=== PATIENT | female | born 1995 | race Two or more races ===

== ENCOUNTER 2019-02-28 13:52 | Emergency (ER) | payer OTHER ==
[~2019-02-28] VITALS: Ht 160 cm; Wt 93.0 kg
[2019-02-28 15:01] LABS: Basophils # (auto) 0.1 uL; Basophils % (auto) 0.5 % (0.0-2.0); Eosinophils # (auto) 0.1 uL; Eosinophils % (auto) 1.3 % (0.0-7.0); Hematocrit 46.2 % (36.0-46.0); Hemoglobin 15.2 g/dL (12.2-16.2); Lymphocytes # (auto) 2.4 uL; Lymphocytes % (auto) 25.5 % (10.0-50.0); Mean Corpuscular Hemoglobin 29.6 pg (28.0-32.0); Mean Corpuscular Volume 89.7 fL (80.0-100.0); Monocytes # (auto) 0.8 uL; Monocytes % (auto) 8.1 % (0.0-12.0); Neutrophils % (auto) 64.6 % (37.0-80.0); Nucleated Red Blood Cells % 0.1 %; Platelet Count (auto) 365 10^3/uL (140-450); Red Blood Cells 5.15 10^6/uL (4.0-5.20); Red Cell Distribution Width 12.9 % (11.8-14.3); White Blood Cell 9.4 10^3/uL (4.4-10.8)
[2019-02-28 15:02] LABS: Albumin 3.7 g/dL (3.4-5.0); BUN/Creatinine Ratio 9.1; Calcium 9.2 mg/dL (8.5-10.1)
[2019-02-28 15:05] LABS: Bilirubin, Total 0.4 mg/dL (0.2-1.0); Total Protein 7.6 g/dL (6.4-8.2)
[2019-02-28 16:24] LABS: Urine Bacteria NONE SEEN /hpf (None Seen); Urine Blood 3+ /uL (Negative); Urine Specific Gravity 1.005 (1.001-1.035); Urine WBC 3 /hpf (0 - 5)
[2019-02-28 17:28] VITALS: BP 126/66
== END 2019-02-28 17:32 | disposition home or self-care (01) ==
LOC: ER 13:52
DX: O20.0 Threatened abortion (principal); Z3A.01 Less than 8 weeks gestation of pregnancy
CPT/HCPCS: 36415; 76801; 76817; 80053; 81001; 84702; 85025

== ENCOUNTER 2019-04-09 19:25 | Emergency (ER) | payer MEDICAID ==
[~2019-04-09] VITALS: Ht 160 cm; Wt 93.4 kg
[2019-04-09 20:00] LABS: Urine Bacteria NONE SEEN /hpf (None Seen); Urine Blood 3+ /uL (Negative); Urine Mucus FEW (None Seen); Urine Specific Gravity 1.011 (1.001-1.035); Urine WBC 78 /hpf (0 - 5)
[2019-04-09 21:26] LABS: Basophils # (auto) 0.1 uL; Basophils % (auto) 0.7 % (0.0-2.0); Eosinophils # (auto) 0.5 uL; Eosinophils % (auto) 5.3 % (0.0-7.0); Lymphocytes # (auto) 3.1 uL; Lymphocytes % (auto) 30.4 % (10.0-50.0); Mean Corpuscular Hemoglobin 30.4 pg (28.0-32.0); Mean Corpuscular Hgb Conc. 34.3 g/dL (32.0-36.0); Mean Corpuscular Volume 88.7 fL (80.0-100.0); Monocytes % (auto) 9.5 % (0.0-12.0); Neutrophils # (auto) 5.4 uL; Neutrophils % (auto) 54.1 % (37.0-80.0); Platelet Count (auto) 299 10^3/uL (140-450); Red Blood Cells 4.29 10^6/uL (4.0-5.20); Red Cell Distribution Width 13.2 % (11.8-14.3); White Blood Cell 10.1 10^3/uL (4.4-10.8)
[2019-04-09 21:45] LABS: Albumin 3.3 g/dL (3.4-5.0); Calcium 8.7 mg/dL (8.5-10.1); Potassium 3.9 mmol/L (3.5-5.1)
[2019-04-09 21:48] LABS: BUN/Creatinine Ratio 12.5; Bilirubin, Total 0.1 mg/dL (0.2-1.0)
[2019-04-09 23:30] VITALS: BP 110/64
== END 2019-04-09 23:44 | disposition home or self-care (01) ==
LOC: ER 19:26
DX: O20.8 Other hemorrhage in early pregnancy (principal); O23.42 Unspecified infection of urinary tract in pregnancy, second trimester; Z3A.14 14 weeks gestation of pregnancy
CPT/HCPCS: 36415; 76805; 80053; 81001; 82962; 84702; 85025

== ENCOUNTER 2019-07-19 14:10 | Observation (INO) | payer MEDICAID ==
[2019-07-19 15:26] LABS: Basophils # (auto) 0 uL; Basophils % (auto) 0.3 % (0.0-2.0); Eosinophils # (auto) 0.3 uL; Eosinophils % (auto) 3.5 % (0.0-7.0); Hematocrit 39.3 % (36.0-46.0); Hemoglobin 12.8 g/dL (12.2-16.2); Lymphocytes # (auto) 2.3 uL; Lymphocytes % (auto) 24.6 % (10.0-50.0); Mean Corpuscular Hemoglobin 28.1 pg (28.0-32.0); Mean Corpuscular Hgb Conc. 32.6 g/dL (32.0-36.0); Mean Corpuscular Volume 86.4 fL (80.0-100.0); Monocytes # (auto) 0.8 uL; Monocytes % (auto) 8.9 % (0.0-12.0); Neutrophils # (auto) 5.8 uL; Neutrophils % (auto) 62.7 % (37.0-80.0); Nucleated Red Blood Cells % 0.1 %; Platelet Count (auto) 279 10^3/uL (140-450); Red Blood Cells 4.55 10^6/uL (4.0-5.20); White Blood Cell 9.3 10^3/uL (4.4-10.8)
[2019-07-19 15:28] LABS: Urine Bacteria NONE SEEN /hpf (None Seen); Urine Blood Negative /uL (Negative); Urine Hyaline Cast FEW /lpf (0 - 2); Urine Mucus FEW (None Seen); Urine Specific Gravity 1.023 (1.001-1.035); Urine WBC 7 /hpf (0 - 5)
[2019-07-19 15:42] LABS: Albumin 2.7 g/dL (3.4-5.0); Calcium 8.8 mg/dL (8.5-10.1); Potassium 3.8 mmol/L (3.5-5.1)
[2019-07-19 15:45] LABS: INR < 0.93 (0.9-1.15); Partial Thromboplastin Time 27.3 sec (23.64-32.05)
[2019-07-19 15:47] LABS: BUN/Creatinine Ratio 19.6; Bilirubin, Total 0.1 mg/dL (0.2-1.0); Uric Acid 4.6 mg/dL (2.6-6.0)
== END 2019-07-19 16:55 | disposition home or self-care (01) | DRG 566 ==
LOC: LDRP 14:10
PROVIDERS: ADMIT Specialist; ATTEND Specialist
DX: O26.893 Other specified pregnancy related conditions, third trimester (principal); Z3A.28 28 weeks gestation of pregnancy
CPT/HCPCS: 36415; 59025; 80053; 81001; 81002; 84550; 85025; 85610; 85730; G0378

== ENCOUNTER 2019-07-24 09:50 | Observation (INO) | payer MEDICAID ==
[2019-07-24] MEDS ORDERED: PREN-153 OR (10:16)
[2019-07-24 11:10] LABS: Protein, Urine 15.6 mg/dL (0.0-11.9)
== END 2019-07-24 11:30 | disposition home or self-care (01) | DRG 566 ==
LOC: LDRP 09:50
PROVIDERS: ADMIT Obstetrics & Gynecology; ATTEND Obstetrics & Gynecology
DX: O26.893 Other specified pregnancy related conditions, third trimester (principal); R03.0 Elevated blood-pressure reading, without diagnosis of hypertension; Z3A.29 29 weeks gestation of pregnancy
CPT/HCPCS: 59025; 81002; 84156; G0378

== ENCOUNTER 2019-08-01 13:50 | Observation (INO) | payer MEDICAID ==
[~2019-08-01 13:50] MED LIST: PREN-153 OR
== END 2019-08-01 14:58 | disposition home or self-care (01) | DRG 566 ==
LOC: LDRP 13:50
PROVIDERS: ADMIT Specialist; ATTEND Specialist
DX: O26.893 Other specified pregnancy related conditions, third trimester (principal); N89.8 Other specified noninflammatory disorders of vagina; Z3A.30 30 weeks gestation of pregnancy
CPT/HCPCS: 59025; 76818; 81002; G0378

== ENCOUNTER 2019-08-08 14:44 | Observation (INO) | payer MEDICAID | END 2019-08-08 15:33 | disposition home or self-care (01) | DRG 566 | LOC: LDRP 14:44 | PROVIDERS: ADMIT Specialist; ATTEND Specialist | DX: O26.893 Other specified pregnancy related conditions, third trimester (principal); Z3A.31 31 weeks gestation of pregnancy | CPT/HCPCS: 59025; 76818; 81002; G0378 ==

== ENCOUNTER 2019-08-15 09:30 | Observation (INO) | payer MEDICAID | END 2019-08-15 10:50 | disposition home or self-care (01) | DRG 566 | LOC: LDRP 09:30 | PROVIDERS: ADMIT Specialist; ATTEND Specialist | DX: O13.3 Gestational [pregnancy-induced] hypertension without significant proteinuria, third trimester (principal); Z3A.32 32 weeks gestation of pregnancy | CPT/HCPCS: 59025; 76818; 81002; G0378 ==

== ENCOUNTER 2019-08-21 07:11 | Observation (INO) | payer MEDICAID | END 2019-08-21 11:25 | disposition home or self-care (01) | DRG 566 | LOC: LDRP 08:17 | PROVIDERS: ADMIT Specialist; ATTEND Specialist | DX: O13.3 Gestational [pregnancy-induced] hypertension without significant proteinuria, third trimester (principal); Z3A.33 33 weeks gestation of pregnancy | CPT/HCPCS: 59025; 76818; 81002; G0378 ==

== ENCOUNTER 2019-08-28 10:11 | Observation (INO) | payer MEDICAID | END 2019-08-28 11:50 | disposition home or self-care (01) | DRG 566 | LOC: LDRP 10:11 | PROVIDERS: ADMIT Specialist; ATTEND Specialist | DX: O13.3 Gestational [pregnancy-induced] hypertension without significant proteinuria, third trimester (principal); Z3A.34 34 weeks gestation of pregnancy | CPT/HCPCS: 59025; 76818; 81002; G0378 ==

== ENCOUNTER 2019-09-03 10:01 | Observation (INO) | payer MEDICAID | END 2019-09-03 11:06 | disposition home or self-care (01) | DRG 566 | LOC: LDRP 10:01 | PROVIDERS: ADMIT Specialist; ATTEND Specialist | DX: O26.893 Other specified pregnancy related conditions, third trimester (principal); Z3A.35 35 weeks gestation of pregnancy | CPT/HCPCS: 59025; 76818; 81002; G0378 ==

== ENCOUNTER 2019-09-10 10:12 | Observation (INO) | payer MEDICAID | END 2019-09-10 11:20 | disposition home or self-care (01) | DRG 566 | LOC: LDRP 10:12 | PROVIDERS: ADMIT Obstetrics & Gynecology; ATTEND Obstetrics & Gynecology | DX: O13.3 Gestational [pregnancy-induced] hypertension without significant proteinuria, third trimester (principal); Z3A.36 36 weeks gestation of pregnancy | CPT/HCPCS: 59025; 76818; 81002; G0378 ==

== ENCOUNTER 2019-09-17 11:12 | Observation (INO) | payer MEDICAID | END 2019-09-17 12:30 | disposition home or self-care (01) | DRG 566 | LOC: LDRP 11:12 | PROVIDERS: ADMIT Specialist; ATTEND Specialist | DX: O13.3 Gestational [pregnancy-induced] hypertension without significant proteinuria, third trimester (principal); Z3A.37 37 weeks gestation of pregnancy | CPT/HCPCS: 59025; 76818; 81002; G0378 ==

== ENCOUNTER 2019-09-24 11:04 | Observation (INO) | payer MEDICAID | END 2019-09-24 12:10 | disposition home or self-care (01) | DRG 566 | LOC: LDRP 11:04 | PROVIDERS: ADMIT Obstetrics & Gynecology; ATTEND Obstetrics & Gynecology | DX: O36.8330 Maternal care for abnormalities of the fetal heart rate or rhythm, third trimester, not applicable or unspecified (principal); Z3A.38 38 weeks gestation of pregnancy | CPT/HCPCS: 59025; 76818; 81002; G0378 ==

== ENCOUNTER 2019-10-01 10:29 | Observation (INO) | payer MEDICAID | END 2019-10-01 12:34 | disposition home or self-care (01) | DRG 566 | LOC: LDRP 10:29 | PROVIDERS: ADMIT Specialist; ATTEND Specialist | DX: O62.9 Abnormality of forces of labor, unspecified (principal); Z3A.39 39 weeks gestation of pregnancy | CPT/HCPCS: 59025; 76818; 81002; G0378 ==

== ENCOUNTER 2019-10-03 22:57 | Inpatient (IN) | payer MEDICAID ==
[~2019-10-03] VITALS: Ht 160 cm; Wt 104.8 kg
[2019-10-03] MEDS ORDERED: LACT. RINGERS/OXYTOCIN 20UNITS 1,000 ML IV SCH (23:10)
[2019-10-03] MEDS ORDERED: LIDOCAINE 2%HCL (LOCAL ANESTH.) INJ 20ML MDV ID ONE (23:15)
[2019-10-03] MEDS ORDERED: WITCH HAZEL-GLYCERIN PAD TOP PRN (23:15)
[2019-10-03] MEDS ORDERED: PHISODERM TOP SOLN 240ML BTL TOP PRN (23:15)
[2019-10-03] MEDS ORDERED: DERMOPLAST 60ML BOTTLE TOP PRN (23:15)
[2019-10-04] MEDS ORDERED: PENICILLIN G POT 5MIL/D5 50ML 50 ML IV ONE
[2019-10-04 00:01] LABS: Basophils # (auto) 0.1 uL; Basophils % (auto) 0.6 % (0.0-2.0); Eosinophils # (auto) 0.2 uL; Eosinophils % (auto) 1.6 % (0.0-7.0); Hematocrit 39.8 % (36.0-46.0); Hemoglobin 13.6 g/dL (12.2-16.2); Lymphocytes # (auto) 3.2 uL; Lymphocytes % (auto) 31.2 % (10.0-50.0); Mean Corpuscular Hemoglobin 29.2 pg (28.0-32.0); Mean Corpuscular Hgb Conc. 34.3 g/dL (32.0-36.0); Mean Corpuscular Volume 85.2 fL (80.0-100.0); Monocytes # (auto) 0.9 uL; Monocytes % (auto) 8.8 % (0.0-12.0); Neutrophils % (auto) 57.8 % (37.0-80.0); Nucleated Red Blood Cells % 0.1 %; Platelet Count (auto) 244 10^3/uL (140-450); Red Blood Cells 4.67 10^6/uL (4.0-5.20); White Blood Cell 10.4 10^3/uL (4.4-10.8)
[2019-10-04 00:07] LABS: Albumin 2.7 g/dL (3.4-5.0); BUN/Creatinine Ratio 23.2; Calcium 9.2 mg/dL (8.5-10.1); Potassium 3.9 mmol/L (3.5-5.1); Uric Acid 6.1 mg/dL (2.6-6.0)
[2019-10-04 00:13] LABS: INR < 0.93 (0.9-1.15); Partial Thromboplastin Time 27.9 sec (23.64-32.05)
[2019-10-04 00:16] LABS: Bilirubin, Total 0.2 mg/dL (0.2-1.0); Total Protein 6.8 g/dL (6.4-8.2)
[2019-10-04 00:59] LABS: Urine Bacteria FEW /hpf (None Seen); Urine Blood Negative /uL (Negative); Urine Specific Gravity 1.003 (1.001-1.035); Urine WBC 1 /hpf (0 - 5)
[2019-10-04] MEDS: LACTATED RINGER'S 1,000 ML IV SCH ×2 (00:59→04:23)
[2019-10-04 01:14] LABS: Alcohol, Urine < 3.0 mg/dL (0-5); Amphetamine Screen, Urine NEGATIVE (NEGATIVE); Barbiturate Scree,Urine NEGATIVE (NEGATIVE); Benzodiazephine Screen, Urine NEGATIVE (NEGATIVE); Cannabinoid Screen, Urine NEGATIVE (NEGATIVE); Cocaine Screen, Urine NEGATIVE (NEGATIVE); Opiate Scree,Urine NEGATIVE (NEGATIVE); Phencyclidine Screen, Urine NEGATIVE (NEGATIVE)
[2019-10-04] MEDS ORDERED: PENICILLIN G POT 5MILLION UNIT VIAL ONE (04:08)
[2019-10-04] MEDS ORDERED: SODIUM CHLORIDE LOCK 10 ML ONE (04:10)
[2019-10-04] MEDS: PENICILLIN G POTASSIUM 2,500,000 UNITS in D5W 5% 50 ML IV SCH ×4 (04:21→16:00)
[2019-10-04] MEDS ORDERED: NALBUPHINE HCL 10 MG/1ml INJECTION IV PRN (06:30)
[2019-10-04] MEDS ORDERED: LACTATED RINGER'S 1,000 ML IV ONE ×2 (07:53→19:45)
[2019-10-04] MEDS ORDERED: fentaNYL W ROPIVACAINE 150 ML EPI SCH (08:00)
[2019-10-04] MEDS ORDERED: fentaNYL CITRATE 100 MCG/2 ML VL IV ONE (08:00)
[2019-10-04] MEDS ORDERED: NALOXONE HCL 0.4 MG/ML VIAL IV ONE (08:00)
[2019-10-04] MEDS ORDERED: LIDOCAINE HCL 2 %PF INJ 10ML AMP IJ ONE (08:00)
[2019-10-04] MEDS ORDERED: ePHEDrine SULFATE 50 MG/ML AMP IV ONE (08:00)
[2019-10-04] MEDS ORDERED: METHYLERGONOVINE MALEATE 0.2 MG/ML AMP IM ONE (18:01)
[2019-10-04] MEDS ORDERED: ACETAMINOPHEN 325 MG TAB PO PRN (19:45)
[2019-10-04 20:48] LABS: Basophils # (auto) 0 uL; Basophils % (auto) 0.1 % (0.0-2.0); Eosinophils # (auto) 0 uL; Hematocrit 34.7 % (36.0-46.0); Hemoglobin 11.4 g/dL (12.2-16.2); Lymphocytes # (auto) 1.1 uL; Lymphocytes % (auto) 5.9 % (10.0-50.0); Mean Corpuscular Hemoglobin 28.1 pg (28.0-32.0); Mean Corpuscular Hgb Conc. 32.7 g/dL (32.0-36.0); Mean Corpuscular Volume 85.9 fL (80.0-100.0); Monocytes # (auto) 1.2 uL; Monocytes % (auto) 6.1 % (0.0-12.0); Neutrophils # (auto) 16.7 uL; Neutrophils % (auto) 87.9 % (37.0-80.0); Platelet Count (auto) 225 10^3/uL (140-450); Red Blood Cells 4.04 10^6/uL (4.0-5.20); Red Cell Distribution Width 15.2 % (11.8-14.3); White Blood Cell 19.1 10^3/uL (4.4-10.8)
--- NOTE | 2019-10-04 21:35 | NUR ---
Orders received for Zosyn by Dr Granger
[2019-10-04 22:00] VITALS: BP 135/62
[2019-10-04] MEDS: PIPERACILLIN-TAZOB 3.375GM 100 ML IV SCH (22:18)
[2019-10-04 22:30] VITALS: BP 131/57
[2019-10-04 23:20] VITALS: BP 128/61
[2019-10-05 03:00] VITALS: BP_SYST 131; BP_SYST 140; BP_DIAS 57; BP_DIAS 71
[2019-10-05] MEDS: PIPERACILLIN-TAZOB 3.375GM 100 ML IV SCH ×3 (04:42→17:49)
[2019-10-05 05:06] LABS: RPR Non Reactive (Non Reactive)
--- NOTE | 2019-10-05 06:10 | NUR ---
Report received by Donna Mayorga RN on stable pt. Assumed care. Addendum: 10/05/19 at 1611 by Erica Harrison RN Amended: Links added.
[2019-10-05 06:48] LABS: Basophils # (auto) 0 uL; Basophils % (auto) 0.2 % (0.0-2.0); Eosinophils # (auto) 0 uL; Eosinophils % (auto) 0.1 % (0.0-7.0); Hematocrit 28.9 % (36.0-46.0); Hemoglobin 9.5 g/dL (12.2-16.2); Lymphocytes # (auto) 2.7 uL; Lymphocytes % (auto) 17.5 % (10.0-50.0); Mean Corpuscular Hemoglobin 28.4 pg (28.0-32.0); Mean Corpuscular Hgb Conc. 32.9 g/dL (32.0-36.0); Mean Corpuscular Volume 86.4 fL (80.0-100.0); Monocytes # (auto) 1.3 uL; Monocytes % (auto) 8.1 % (0.0-12.0); Neutrophils # (auto) 11.7 uL; Neutrophils % (auto) 74.1 % (37.0-80.0); Platelet Count (auto) 211 10^3/uL (140-450); Red Blood Cells 3.34 10^6/uL (4.0-5.20); White Blood Cell 15.7 10^3/uL (4.4-10.8)
[2019-10-05 06:49] VITALS: BP 131/61
--- NOTE | 2019-10-05 06:49 | NUR ---
rash noted on back Addendum: 10/05/19 at 1807 by Erica Harrison RN Amended: Links added.
[2019-10-05] MEDS: IBUPROFEN 600 MG TAB PO PRN (07:23)
[2019-10-05] MEDS: LACTATED RINGER'S 1,000 ML IV SCH (07:24)
--- NOTE | 2019-10-05 09:24 | NUR ---
Dr. Granger at bedside, labs reviewed. Orders received to d/c [place], IV fluid to be changed to NS at 30ml/hr.
[2019-10-05] MEDS ORDERED: SODIUM CHLORIDE 0.9% 1,000 ML IV SCH (09:30)
--- NOTE | 2019-10-05 09:50 | NUR ---
[place] catheter dc'd Order to discontinue gresham catheter. [place] dc'd with clean technique following deflation of balloon. Patient tolerated well with no complaints of pain. Continue care.
[2019-10-05] MEDS: DOCUSATE CALCIUM 240 MG CAP PO SCH (09:54)
[2019-10-05 11:54] VITALS: BP 114/58
--- NOTE | 2019-10-05 13:30 | NUR ---
Ambulation: Pt assisted to side of bed to dangle prior to ambulation. Pt denies dizziness. Patient OOB with standby assistance by RN. Patient ambulated to bathroom with steady gait. Patient able to void without difficulty. [facility] teaching provided with returned demonstration by patient. Clean gown provided and bed linen changed. Patient ambulated to chair with steady gait and no distress noted.
[2019-10-05 15:30] VITALS: BP 122/64
--- NOTE | 2019-10-05 18:10 | NUR ---
Report given to Meseret Bautista RN on stable pt. Relinquished care. Addendum: 10/05/19 at 1834 by Erica Harrison RN Amended: Links added.
[2019-10-05 18:30] VITALS: BP 119/54
[2019-10-05 22:58] VITALS: BP 109/51
[2019-10-06] MEDS: PIPERACILLIN-TAZOB 3.375GM 100 ML IV SCH ×2 (00:03→05:34)
[2019-10-06 02:40] VITALS: BP 121/57
[2019-10-06] MEDS: IBUPROFEN 600 MG TAB PO PRN (05:32)
[2019-10-06 07:00] VITALS: BP 118/57
[2019-10-06] MEDS: DOCUSATE CALCIUM 240 MG CAP PO SCH (09:36)
[2019-10-06 11:00] VITALS: BP 139/80
[2019-10-06] MEDS ORDERED: INFLUENZA QUAD 2019-2020 0.5ml SYRG IM ONE (12:00)
[2019-10-06] MEDS ORDERED: MEASLES, MUMPS & RUBELLA VAC(MMRII) 0.5ML SC ONE (12:00)
[2019-10-06 15:00] VITALS: BP 138/74
--- NOTE | 2019-10-06 17:36 | NUR ---
Discharge: Discharge instructions given as ordered. Pt encouraged to follow up with [facility] as instructed. All questions and concerns addressed. Patient verbalized understanding. Medication reconciliation completed and copy given to patient. All required/requested vaccines given and copies of vaccinations given to patient. Patient encouraged to prepare to depart unit.
--- NOTE | 2019-10-06 18:00 | NUR ---
Discharge: Patient taken to vehicle via wheelchair with all personal belongings, accompanied by staff and family member. No distress noted at time of departure, no adverse changes in status since initial assessment.
== END 2019-10-06 18:00 | disposition home or self-care (01) | DRG 560 ==
LOC: LDRP 22:57
PROVIDERS: ADMIT Obstetrics & Gynecology; ATTEND Obstetrics & Gynecology
PROC: 10E0XZZ Delivery of Products of Conception, External Approach (ICD-10-PCS; principal; 2019-10-04)
PROC: 10H07YZ Insertion of Other Device into Products of Conception, Via Natural or Artificial Opening (ICD-10-PCS; 2019-10-04)
PROC: 3E0R3BZ Introduction of Anesthetic Agent into Spinal Canal, Percutaneous Approach (ICD-10-PCS; 2019-10-04)
PROC: 00HU33Z Insertion of Infusion Device into Spinal Canal, Percutaneous Approach (ICD-10-PCS; 2019-10-04)
DX: O99.824 Streptococcus B carrier state complicating childbirth (principal); O41.03X0 Oligohydramnios, third trimester, not applicable or unspecified; O72.1 Other immediate postpartum hemorrhage; Z37.0 Single live birth; Z3A.39 39 weeks gestation of pregnancy; O69.81X0 Labor and delivery complicated by cord around neck, without compression, not applicable or unspecified
CPT/HCPCS: 36415; 59025; 59409; 59612; 80053; 80307; 81001; 84112; 84550; 85025; 85610; 85730; 86592; 86850; 86900; 86901; 96361; 96365; 96366; 96372; G0378; J2540; J2543; J2590; J3010; J7060

== ENCOUNTER 2020-01-23 22:19 | Emergency (ER) | payer MEDICAID ==
[~2020-01-23] VITALS: Ht 157.5 cm; Wt 97.5 kg
[2020-01-24 00:08] VITALS: BP 136/73
== END 2020-01-24 01:23 | disposition home or self-care (01) ==
LOC: ER 22:19
DX: J02.9 Acute pharyngitis, unspecified (principal); R51 Headache; Z79.899 Other long term (current) drug therapy

== ENCOUNTER 2021-08-05 07:27 | Observation (INO) | payer MEDICAID ==
[~2021-08-05 07:27] MED LIST changes: -PREN-153 OR; +PREN1TAB71 OR
[2021-08-05] MEDS ORDERED: METF-370 PO (11:58)
== END 2021-08-05 12:10 | disposition home or self-care (01) ==
LOC: LDRP 10:35
PROVIDERS: ADMIT Obstetrics & Gynecology; ATTEND Obstetrics & Gynecology
DX: O24.415 Gestational diabetes mellitus in pregnancy, controlled by oral hypoglycemic drugs (principal); Z3A.29 29 weeks gestation of pregnancy
CPT/HCPCS: 36415; 59025; 76818; 81002; 82948; 82962; 83036; 94760; G0378; G0379

== ENCOUNTER 2021-08-09 08:47 | Observation (INO) | payer MEDICAID ==
[~2021-08-09 08:47] MED LIST changes: +METF-370 PO
== END 2021-08-09 11:40 | disposition home or self-care (01) ==
LOC: LDRP 10:05
PROVIDERS: ADMIT Obstetrics & Gynecology Obstetrics; ATTEND Obstetrics & Gynecology Obstetrics
DX: O24.415 Gestational diabetes mellitus in pregnancy, controlled by oral hypoglycemic drugs (principal); Z3A.29 29 weeks gestation of pregnancy
CPT/HCPCS: 59025; 76818; 81002; 82948; 82962; 94760; G0378

== ENCOUNTER 2021-08-12 15:07 | Observation (INO) | payer MEDICAID | END 2021-08-12 16:53 | disposition home or self-care (01) | LOC: LDRP 15:07 | PROVIDERS: ADMIT Obstetrics & Gynecology; ATTEND Obstetrics & Gynecology | DX: O24.419 Gestational diabetes mellitus in pregnancy, unspecified control (principal); Z3A.30 30 weeks gestation of pregnancy | CPT/HCPCS: 59025; 76818; 81002; 82948; 82962; G0378 ==

== ENCOUNTER 2021-08-16 10:30 | Observation (INO) | payer MEDICAID | END 2021-08-16 18:05 | disposition home or self-care (01) | LOC: LDRP 16:05 | PROVIDERS: ADMIT Obstetrics & Gynecology Obstetrics; ATTEND Obstetrics & Gynecology Obstetrics | DX: O24.419 Gestational diabetes mellitus in pregnancy, unspecified control (principal); Z3A.30 30 weeks gestation of pregnancy | CPT/HCPCS: 59025; 76818; 81002; 82948; 82962; 94760; G0378 ==

== ENCOUNTER 2021-08-19 09:12 | Observation (INO) | payer MEDICAID | END 2021-08-19 17:03 | disposition home or self-care (01) | LOC: LDRP 15:30 | PROVIDERS: ADMIT Obstetrics & Gynecology; ATTEND Obstetrics & Gynecology | DX: O24.419 Gestational diabetes mellitus in pregnancy, unspecified control (principal); Z3A.31 31 weeks gestation of pregnancy; Z79.899 Other long term (current) drug therapy | CPT/HCPCS: 59025; 76818; 81002; 82948; 82962; 94760; G0378 ==

== ENCOUNTER 2021-08-23 09:09 | Observation (INO) | payer MEDICAID | END 2021-08-24 12:28 | disposition home or self-care (01) | LOC: LDRP 08-24 10:00 | PROVIDERS: ADMIT Obstetrics & Gynecology; ATTEND Obstetrics & Gynecology | DX: O98.513 Other viral diseases complicating pregnancy, third trimester (principal); U07.1 COVID-19; O24.415 Gestational diabetes mellitus in pregnancy, controlled by oral hypoglycemic drugs; Z3A.31 31 weeks gestation of pregnancy | CPT/HCPCS: 36415; 59025; 76818; 81002; 82948; 82962; 87426; G0378; G0379 ==

== ENCOUNTER 2021-08-30 08:28 | Observation (INO) | payer MEDICAID ==
[~2021-08-30] VITALS: Ht 160 cm; Wt 108.9 kg
[2021-08-30 19:08] LABS: Urine Bacteria NONE SEEN /hpf (None Seen); Urine Blood 1+ /uL (Negative); Urine Specific Gravity 1.004 (1.001-1.035); Urine WBC 9 /hpf (0 - 5)
== END 2021-08-30 18:26 | disposition home or self-care (01) ==
LOC: LDRP 15:48 → UNDOADMOB 15:53 → LDRP 15:53
PROVIDERS: ADMIT Obstetrics & Gynecology Obstetrics; ATTEND Obstetrics & Gynecology Obstetrics
DX: O98.513 Other viral diseases complicating pregnancy, third trimester (principal); U07.1 COVID-19; O24.419 Gestational diabetes mellitus in pregnancy, unspecified control; O26.893 Other specified pregnancy related conditions, third trimester; R51.9 Headache, unspecified; Z3A.32 32 weeks gestation of pregnancy; Z79.899 Other long term (current) drug therapy
CPT/HCPCS: 59025; 76817; 76818; 81001; 81002; 82948; 82962; 87086; 94760; G0378; G0379

== ENCOUNTER 2021-09-02 07:57 | Observation (INO) | payer MEDICAID | END 2021-09-02 17:28 | disposition home or self-care (01) | LOC: LDRP 15:58 | PROVIDERS: ADMIT Obstetrics & Gynecology; ATTEND Obstetrics & Gynecology | DX: O24.419 Gestational diabetes mellitus in pregnancy, unspecified control (principal); O99.333 Smoking (tobacco) complicating pregnancy, third trimester; F17.200 Nicotine dependence, unspecified, uncomplicated; Z3A.33 33 weeks gestation of pregnancy | CPT/HCPCS: 59025; 76818; 81002; 82962; 94760; G0378; G0379 ==

== ENCOUNTER 2021-09-06 16:03 | Observation (INO) | payer MEDICAID ==
[2021-09-06] MEDS ORDERED: NIFEdipine 10 MG CAP PO ONE (17:00)
[2021-09-06] MEDS ORDERED: TERBUTALINE SULFATE 1 MG/ML 1ML VIAL SC STA (18:31)
[2021-09-06] MEDS ORDERED: TERBUTALINE SULFATE 1 MG/ML 1ML VIAL SC ONE (18:39)
== END 2021-09-06 19:30 | disposition home or self-care (01) ==
LOC: LDRP 16:03
PROVIDERS: ADMIT Obstetrics & Gynecology Obstetrics; ATTEND Obstetrics & Gynecology Obstetrics
DX: O24.419 Gestational diabetes mellitus in pregnancy, unspecified control (principal); O60.03 Preterm labor without delivery, third trimester; O99.333 Smoking (tobacco) complicating pregnancy, third trimester; F17.200 Nicotine dependence, unspecified, uncomplicated; Z3A.33 33 weeks gestation of pregnancy
CPT/HCPCS: 59025; 76818; 81002; 82948; 82962; 94760; 96372; G0378; G0379; J3105

== ENCOUNTER 2021-09-09 13:25 | Observation (INO) | payer MEDICAID ==
[~2021-09-09] VITALS: Ht 157.5 cm; Wt 108.9 kg
[2021-09-09] MEDS ORDERED: TERBUTALINE SULFATE 1 MG/ML 1ML VIAL SC ONE (15:15)
[2021-09-09] MEDS ORDERED: NIF10C GT ×2 (15:15→15:16)
== END 2021-09-09 16:10 | disposition home or self-care (01) ==
LOC: LDRP 13:25
PROVIDERS: ADMIT Obstetrics & Gynecology; ATTEND Obstetrics & Gynecology
DX: O24.419 Gestational diabetes mellitus in pregnancy, unspecified control (principal); O60.03 Preterm labor without delivery, third trimester; O26.893 Other specified pregnancy related conditions, third trimester; R51.9 Headache, unspecified; O99.333 Smoking (tobacco) complicating pregnancy, third trimester; F17.200 Nicotine dependence, unspecified, uncomplicated; Z3A.34 34 weeks gestation of pregnancy
CPT/HCPCS: 59025; 76818; 81002; 82948; 82962; 94760; 96372; G0378; G0379; J3105

== ENCOUNTER 2021-09-13 07:21 | Observation (INO) | payer MEDICAID ==
[~2021-09-13 07:21] MED LIST changes: +NIF10C GT
== END 2021-09-13 11:37 | disposition home or self-care (01) ==
LOC: LDRP 10:29
PROVIDERS: ADMIT Obstetrics & Gynecology Obstetrics; ATTEND Obstetrics & Gynecology Obstetrics
DX: O24.419 Gestational diabetes mellitus in pregnancy, unspecified control (principal); O62.9 Abnormality of forces of labor, unspecified; Z3A.34 34 weeks gestation of pregnancy
CPT/HCPCS: 59025; 76818; 81002; 82948; 82962; 94760; G0378; G0379

== ENCOUNTER 2021-09-17 08:24 | Observation (INO) | payer MEDICAID ==
[~2021-09-17] VITALS: Ht 160 cm; Wt 108.0 kg
== END 2021-09-17 11:42 | disposition home or self-care (01) ==
LOC: LDRP 10:44
PROVIDERS: ADMIT Obstetrics & Gynecology; ATTEND Obstetrics & Gynecology
DX: O24.419 Gestational diabetes mellitus in pregnancy, unspecified control (principal); O36.8130 Decreased fetal movements, third trimester, not applicable or unspecified; Z3A.35 35 weeks gestation of pregnancy
CPT/HCPCS: 59025; 76818; 81002; 82948; 82962; G0378; G0379

== ENCOUNTER 2021-09-21 10:28 | Observation (INO) | payer MEDICAID ==
[~2021-09-21 10:28] MED LIST changes: -NIF10C GT; +NIF10C PO
== END 2021-09-21 11:28 | disposition home or self-care (01) ==
LOC: LDRP 10:28
PROVIDERS: ADMIT Obstetrics & Gynecology; ATTEND Obstetrics & Gynecology
DX: O24.415 Gestational diabetes mellitus in pregnancy, controlled by oral hypoglycemic drugs (principal); O99.333 Smoking (tobacco) complicating pregnancy, third trimester; F17.200 Nicotine dependence, unspecified, uncomplicated; Z3A.35 35 weeks gestation of pregnancy; Z79.84 Long term (current) use of oral hypoglycemic drugs; Z79.899 Other long term (current) drug therapy
CPT/HCPCS: 59025; 76818; 81002; 82948; 82962; G0378; G0379

== ENCOUNTER 2021-09-24 13:26 | Observation (INO) | payer MEDICAID | END 2021-09-24 15:17 | disposition home or self-care (01) | LOC: LDRP 14:16 | PROVIDERS: ADMIT Obstetrics & Gynecology; ATTEND Obstetrics & Gynecology | DX: O24.415 Gestational diabetes mellitus in pregnancy, controlled by oral hypoglycemic drugs (principal); O99.333 Smoking (tobacco) complicating pregnancy, third trimester; F17.200 Nicotine dependence, unspecified, uncomplicated; Z3A.36 36 weeks gestation of pregnancy | CPT/HCPCS: 59025; 76818; 81002; 82948; 82962; 94760; G0378; G0379 ==

== ENCOUNTER 2021-09-28 08:19 | Observation (INO) | payer MEDICAID | END 2021-09-28 09:58 | disposition home or self-care (01) | LOC: LDRP 08:19 | PROVIDERS: ADMIT Obstetrics & Gynecology; ATTEND Obstetrics & Gynecology | DX: O24.415 Gestational diabetes mellitus in pregnancy, controlled by oral hypoglycemic drugs (principal); O26.893 Other specified pregnancy related conditions, third trimester; N89.8 Other specified noninflammatory disorders of vagina; Z3A.36 36 weeks gestation of pregnancy | CPT/HCPCS: 59025; 76818; 81002; 82948; 82962; 94760; G0378; G0379 ==

== ENCOUNTER 2021-10-01 09:50 | Observation (INO) | payer MEDICAID | END 2021-10-01 11:30 | disposition home or self-care (01) | LOC: LDRP 09:50 | PROVIDERS: ADMIT Obstetrics & Gynecology; ATTEND Obstetrics & Gynecology | DX: O24.419 Gestational diabetes mellitus in pregnancy, unspecified control (principal); Z3A.37 37 weeks gestation of pregnancy | CPT/HCPCS: 59025; 76818; 81002; 82948; 82962; 94760; G0378 ==

== ENCOUNTER 2021-10-05 10:12 | Observation (INO) | payer MEDICAID | END 2021-10-05 11:55 | disposition home or self-care (01) | LOC: LDRP 10:12 | PROVIDERS: ADMIT Obstetrics & Gynecology; ATTEND Obstetrics & Gynecology | DX: O24.415 Gestational diabetes mellitus in pregnancy, controlled by oral hypoglycemic drugs (principal); Z3A.37 37 weeks gestation of pregnancy; Z79.84 Long term (current) use of oral hypoglycemic drugs | CPT/HCPCS: 59025; 76818; 81002; 82948; 82962; 94760; G0378 ==

== ENCOUNTER 2021-10-06 06:04 | Inpatient (IN) | payer MEDICAID ==
[~2021-10-06] VITALS: Ht 160 cm; Wt 108.9 kg
[~2021-10-06 06:04] MED LIST changes: -NIF10C PO
[2021-10-06] MEDS ORDERED: DERMOPLAST 60ML BOTTLE TOP PRN (07:15)
[2021-10-06] MEDS ORDERED: PROMETHAZINE HCL 25 MG/ML 1ML IV PRN (07:15)
[2021-10-06] MEDS ORDERED: LACTATED RINGER'S 1,000 ML IV SCH (07:15)
[2021-10-06] MEDS ORDERED: PHISODERM TOP SOLN 240ML BTL TOP PRN (07:15)
[2021-10-06] MEDS ORDERED: BUTORPHANOL TARTRATE 2 MG/1 ML VIAL IV PRN ×2 (07:15)
[2021-10-06] MEDS ORDERED: PENICILLIN G POT 5MIL/D5 50ML 50 ML IV ONE (07:15)
[2021-10-06] MEDS ORDERED: WITCH HAZEL-GLYCERIN PAD TOP PRN (07:15)
[2021-10-06] MEDS ORDERED: LIDOCAINE 2%HCL (LOCAL ANESTH.) INJ 20ML MDV IJ PRN (07:15)
[2021-10-06] MEDS ORDERED: ACCU-CHEK COMFORT CURVE STRIP VI PRN (07:15)
[2021-10-06 08:22] LABS: Basophils # (auto) 0 10 ^3/uL (0-0.2); Basophils % (auto) 0.4 % (0.0-2.0); Eosinophils # (auto) 0.1 10 ^3/uL (0-0.8); Eosinophils % (auto) 1.2 % (0.0-7.0); Hematocrit 39.2 % (36.0-46.0); Hemoglobin 13.1 g/dL (12.2-16.2); Lymphocytes # (auto) 2.5 10 ^3/uL (0.4-5.4); Lymphocytes % (auto) 29.8 % (10.0-50.0); Mean Corpuscular Hemoglobin 28.3 pg (28.0-32.0); Mean Corpuscular Hgb Conc. 33.5 g/dL (32.0-36.0); Mean Corpuscular Volume 84.5 fL (80.0-100.0); Monocytes # (auto) 0.6 10 ^3/uL (0-1.3); Monocytes % (auto) 7.2 % (0.0-12.0); Neutrophils # (auto) 5.1 10 ^3/uL (1.6-8.6); Neutrophils % (auto) 61.4 % (37.0-80.0); Red Blood Cells 4.64 10^6/uL (4.0-5.20); Red Cell Distribution Width 14.3 % (11.8-14.3); White Blood Cell 8.4 10^3/uL (4.4-10.8)
[2021-10-06 08:46] LABS: Albumin 2.6 g/dL (3.4-5.0); Potassium 4.2 mmol/L (3.5-5.1)
[2021-10-06 08:47] LABS: INR 0.94 (0.9-1.15); Partial Thromboplastin Time 28.5 sec (23.6-33.0)
[2021-10-06 08:49] LABS: BUN/Creatinine Ratio 21.7; Bilirubin, Total 0.3 mg/dL (0.2-1.0); Total Protein 6.3 g/dL (6.4-8.2)
[2021-10-06 08:52] LABS: Urine Bacteria NONE SEEN /hpf (None Seen); Urine Blood 3+ /uL (Negative); Urine Specific Gravity 1.019 (1.001-1.035); Urine WBC 14 /hpf (0 - 5)
[2021-10-06] MEDS ORDERED: LACT. RINGERS/OXYTOCIN 20UNITS 1,000 ML IV ONE (09:00)
[2021-10-06 09:11] LABS: Alcohol, Urine < 3.0 mg/dL (0-10); Amphetamine Screen, Urine NEGATIVE (NEGATIVE); Barbiturate Scree,Urine NEGATIVE (NEGATIVE); Benzodiazephine Screen, Urine NEGATIVE (NEGATIVE); Cannabinoid Screen, Urine NEGATIVE (NEGATIVE); Cocaine Screen, Urine NEGATIVE (NEGATIVE); Opiate Scree,Urine NEGATIVE (NEGATIVE); Phencyclidine Screen, Urine NEGATIVE (NEGATIVE)
[2021-10-06] MEDS ORDERED: LACT. RINGERS/OXYTOCIN 20UNITS 500 ML IV ONE ×4 (09:45→16:30)
[2021-10-06] MEDS ORDERED: TERBUTALINE SULFATE 1 MG/ML 1ML VIAL SC PRN (09:45)
[2021-10-06] MEDS ORDERED: ePHEDrine SULFATE 50 MG/ML AMP IV ONE (10:45)
[2021-10-06] MEDS ORDERED: NALOXONE HCL 0.4 MG/ML VIAL IV ONE ×2 (10:45)
[2021-10-06] MEDS ORDERED: ROPIVACAINE HCL 200 ML EPI SCH ×2 (10:45)
[2021-10-06] MEDS ORDERED: fentaNYL CITRATE 100 MCG/2 ML VL IV ONE (10:45)
[2021-10-06] MEDS ORDERED: PENICILLIN G POTASSIUM 2,500,000 UNITS in D5W 5% 50 ML IV SCH (11:15)
[2021-10-06] MEDS ORDERED: LACT. RINGERS/OXYTOCIN 20UNITS 1,000 ML IV SCH (13:45)
[2021-10-06] MEDS ORDERED: METHYLERGONOVINE MALEATE 0.2 MG/ML AMP IM ONE ×2 (15:14→16:00)
[2021-10-06] MEDS ORDERED: miSOPROStol 100 mcg TAB ONE (15:14)
[2021-10-06] MEDS ORDERED: ONDANSETRON HCL 4 MG/2 ML VIAL ONE (15:48)
[2021-10-06] MEDS ORDERED: METHYLERGONOVINE MALEATE 0.2 MG/ML AMP IM STA (15:59)
[2021-10-06] MEDS ORDERED: IBUPROFEN 600 MG TAB PO PRN (16:00)
[2021-10-06] MEDS ORDERED: miSOPROStol 100 mcg TAB SL PRN (16:00)
[2021-10-06] MEDS ORDERED: miSOPROStol 100 mcg TAB PR PRN (16:00)
[2021-10-06] MEDS ORDERED: ACETAMINOPHEN 325 MG TAB PO PRN (16:00)
[2021-10-06] MEDS ORDERED: ONDANSETRON HCL 4 MG/2 ML VIAL IV PRN (16:00)
[2021-10-06] MEDS ORDERED: miSOPROStol 100 mcg TAB PR STA (16:02)
[2021-10-06] MEDS ORDERED: miSOPROStol 100 mcg TAB SL STA (16:03)
[2021-10-06] MEDS ORDERED: ONDANSETRON HCL 4 MG/2 ML VIAL IV ONE (16:15)
[2021-10-06] MEDS: IBUPROFEN 800 MG TAB PO SCH (18:00)
[2021-10-06] MEDS ORDERED: HYDROcodone-ACET 10/325MG TAB PO PRN (18:15)
[2021-10-06] MEDS ORDERED: BUTORPHANOL TARTRATE 2 MG/1 ML VIAL IV ONE (18:30)
[2021-10-06 19:25] VITALS: BP 113/68
[2021-10-06] MEDS: DOCUSATE SOD 100 MG CAP PO SCH ×2 (19:55→21:37)
[2021-10-06] MEDS: ceFAZolin 1GM/50ML 50 ML IV SCH (21:57)
[2021-10-06] MEDS ORDERED: DOCUSATE SOD 100 MG CAP PO SCH (22:00)
[2021-10-06 23:10] VITALS: BP 112/60
[2021-10-07] MEDS ORDERED: BISACODYL 10 MG RECT SUPP PR PRN (01:00)
[2021-10-07] MEDS ORDERED: BISACODYL 5 MG EC TAB PO ONE (01:30)
[2021-10-07 03:10] VITALS: BP 110/67
[2021-10-07] MEDS: IBUPROFEN 800 MG TAB PO SCH ×4 (06:38→17:39)
[2021-10-07] MEDS: ceFAZolin 1GM/50ML 50 ML IV SCH ×2 (06:39→14:02)
[2021-10-07 08:00] VITALS: BP 107/60
[2021-10-07 08:06] LABS: RPR Non Reactive (Non Reactive)
[2021-10-07 11:00] VITALS: BP 102/52
[2021-10-07 15:00] VITALS: BP 110/60
[2021-10-07] MEDS ORDERED: INFLUENZA QUAD 2021-2022 0.5 ML SYRG IM ONE (17:00)
[2021-10-07] MEDS ORDERED: MEASLES, MUMPS & RUBELLA VAC(MMRII) 0.5ML SC ONE (17:00)
[2021-10-07] MEDS ORDERED: TETANUS-DIPTH-ACEL PERTUSSIS 0.5ML SYR Tdap IM ONE (17:00)
[2021-10-07 19:02] VITALS: BP 91/50
== END 2021-10-07 22:45 | disposition home or self-care (01) | DRG 560 ==
LOC: LDRP 06:04 → OBSVTOIN 07:05 → LDRP 07:06
PROVIDERS: ADMIT Obstetrics & Gynecology; ATTEND Obstetrics & Gynecology
PROC: 0KQM0ZZ Repair Perineum Muscle, Open Approach (ICD-10-PCS; principal; 2021-10-06)
PROC: 10E0XZZ Delivery of Products of Conception, External Approach (ICD-10-PCS; 2021-10-06)
PROC: 3E0R3BZ Introduction of Anesthetic Agent into Spinal Canal, Percutaneous Approach (ICD-10-PCS; 2021-10-06)
PROC: 00HU33Z Insertion of Infusion Device into Spinal Canal, Percutaneous Approach (ICD-10-PCS; 2021-10-06)
DX: O24.429 Gestational diabetes mellitus in childbirth, unspecified control (principal); Z37.0 Single live birth; O70.1 Second degree perineal laceration during delivery; Z20.822 Contact with and (suspected) exposure to COVID-19; Z3A.37 37 weeks gestation of pregnancy
CPT/HCPCS: 36415; 59025; 59409; 80053; 80307; 81001; 81002; 82948; 82962; 85025; 85610; 85730; 86592; 86850; 86900; 86901; 87426; 90686; 90715; 94760; 96360; 96361; 96365; 96366; 96372; 96374; 96375; G0378; J0690; J2405; J2540; J2590; J7060

== ENCOUNTER 2023-08-22 13:40 | Emergency (ER) | payer MEDICAID ==
[~2023-08-22] VITALS: Ht 157.5 cm; Wt 98.2 kg
[2023-08-22 16:17] VITALS: BP 127/66; PULSE 85; RESP 18; TEMP 98.3; O2SAT 98
[2023-08-22] MEDS ORDERED: AUG875T PO (16:31)
== END 2023-08-22 16:31 | disposition home or self-care (01) ==
LOC: ER 13:40
DX: H66.92 Otitis media, unspecified, left ear (principal); Z90.89 Acquired absence of other organs; Z79.2 Long term (current) use of antibiotics; Z79.899 Other long term (current) drug therapy

== ENCOUNTER 2024-05-01 22:09 | Emergency (ER) | payer MEDICAID ==
[~2024-05-01] VITALS: Ht 160 cm; Wt 109.1 kg
[~2024-05-01 22:09] MED LIST changes: +AUG875T PO
[2024-05-01 23:07] LABS: Basophils # (auto) 0.1 10 ^3/uL (0-0.2); Basophils % (auto) 0.3 % (0.0-2.0); Eosinophils # (auto) 0.1 10 ^3/uL (0-0.8); Eosinophils % (auto) 0.8 % (0.0-7.0); Hematocrit 46.1 % (36.0-46.0); Hemoglobin 15.4 g/dL (12.2-16.2); Lymphocytes # (auto) 2.6 10 ^3/uL (0.4-5.4); Lymphocytes % (auto) 15.4 % (10.0-50.0); Mean Corpuscular Hemoglobin 28.7 pg (28.0-32.0); Mean Corpuscular Hgb Conc. 33.3 g/dL (32.0-36.0); Monocytes # (auto) 1.5 10 ^3/uL (0-1.3); Neutrophils # (auto) 12.4 10 ^3/uL (1.6-8.6); Neutrophils % (auto) 74.5 % (37.0-80.0); Red Blood Cells 5.36 10^6/uL (4.0-5.20); Red Cell Distribution Width 12.9 % (11.8-14.3); White Blood Cell 16.6 10^3/uL (4.4-10.8)
[2024-05-01 23:22] LABS: Urine Bacteria FEW /hpf (None Seen); Urine Blood 1+ /uL (Negative); Urine Clarity Turbid (Clear); Urine Color Yellow (Yellow); Urine Mucus FEW (None Seen); Urine Protein, UAD 1+ (Negative); Urine Specific Gravity 1.033 (1.001-1.035); Urine Urobilinogen 2 mg/dL (Negative); Urine WBC 58 /hpf (0 - 5); Urine pH 6.5 (5.0-9.0)
[2024-05-01 23:22] LABS: Alanine Aminotransferase 69 U/L (7-40); Albumin 4.6 g/dL (3.2-4.8); Alkaline Phosphatase 100 U/L (46-116); Anion Gap 9 (5-15); Aspartate Aminotransferase 35 U/L (13-40); BUN/Creatinine Ratio 9.6 (10.0-20.0); Bilirubin, Total 0.5 mg/dL (0.2-1.0); Blood Urea Nitrogen 8 mg/dL (9-23); Calcium 9.7 mg/dL (8.7-10.4); Carbon Dioxide 23 mmol/L (20-30); Chloride 105 mmol/L (98-107); Glucose 169 mg/dL (74-106); Lipase 41 U/L (12-53); Potassium 3.7 mmol/L (3.5-5.1); Sodium 137 mmol/L (136-145); Total Protein 7.6 g/dL (5.7-8.2)
[2024-05-02] MEDS: LOPERAMIDE HCL 2 MG CAP/TAB PO ONE (00:59)
[2024-05-02] MEDS ORDERED: LOP2C PO (04:49)
[2024-05-02] MEDS ORDERED: PANT40TA2 PO (04:49)
[2024-05-02 05:13] VITALS: BP 127/82; PULSE 86; RESP 20; TEMP 98.1; O2SAT 96
== END 2024-05-02 05:12 | disposition home or self-care (01) ==
LOC: ER 22:09
DX: K29.70 Gastritis, unspecified, without bleeding (principal); K52.9 Noninfective gastroenteritis and colitis, unspecified; R10.2 Pelvic and perineal pain; F17.290 Nicotine dependence, other tobacco product, uncomplicated; Z90.89 Acquired absence of other organs
CPT/HCPCS: 36415; 74176; 80053; 81001; 83605; 83690; 84702; 85025